=== PATIENT | female | born 1930 | race Caucasian/White ===

== ENCOUNTER 2016-09-23 13:50 | Emergency (ER) | payer OTHER ==
[~2016-09-23] VITALS: Ht 160 cm; Wt 55.6 kg
[2016-09-23 14:01] VITALS: BP 118/69
== END 2016-09-23 14:44 | disposition home or self-care (01) ==
LOC: ED 14:42
DX: S61.211D Laceration without foreign body of left index finger without damage to nail, subsequent encounter (principal); X58.XXXD Exposure to other specified factors, subsequent encounter; Y92.89 Other specified places as the place of occurrence of the external cause; Y99.9 Unspecified external cause status
CPT/HCPCS: 99281

== ENCOUNTER 2017-02-11 13:40 | Emergency (ER) | payer OTHER ==
[~2017-02-11] VITALS: Ht 149.9 cm; Wt 52.9 kg
[2017-02-11] MEDS ORDERED: SODIUM CHLORIDE FLUSH 10ML SYR IVF ONE (15:00)
[2017-02-11] MEDS ORDERED: SODIUM CHLORIDE 0.9% 1,000ML IVBOLUS ONE (15:00)
[2017-02-11] MEDS ORDERED: ONDANSETRON 2MG/ML, 2ML IVPush ONE (15:00)
[2017-02-11 15:26] LABS: HEMOGLOBIN 12.1 g/dL (11.7-16.4); WHITE BLOOD COUNT 4.9 x10^3/uL (3.4-10)
[2017-02-11] MEDS ORDERED: ONDANSETRON 2MG/ML, 2ML ONE (15:32)
[2017-02-11 15:36] LABS: BLOOD UREA NITROGEN 22 mg/dL (7-18)
[2017-02-11 15:40] LABS: ASPARTATE AMINO TRANSFERASE 105 U/L (15-37)
[2017-02-11 17:51] VITALS: BP 123/75
== END 2017-02-11 18:09 | disposition home or self-care (01) ==
LOC: ED 17:59
DX: K52.9 Noninfective gastroenteritis and colitis, unspecified (principal); E86.0 Dehydration; E11.9 Type 2 diabetes mellitus without complications; Z90.49 Acquired absence of other specified parts of digestive tract
CPT/HCPCS: 36415; 70450; 74022; 80053; 83690; 85025; 93005; 96361; 96374; 99285; J2405; J7030

== ENCOUNTER 2017-06-03 17:52 | Inpatient (IN) | payer OTHER ==
[~2017-06-03] VITALS: Ht 152.4 cm; Wt 69.6 kg
[2017-06-03 19:11] LABS: BASOPHILS # (AUTO) 0.02 x10^3/uL (0-0.1); BASOPHILS % (AUTO) 0 % (0-1); EOSINOPHILS % (AUTO) 0 % (1-7); LYMPHOCYTES # (AUTO) 0.96 x10^3/uL (1-3.4); LYMPHOCYTES % (AUTO) 15 % (22-44); MD NO; MEAN CORPUSCULAR HEMOGLOBIN 33.4 pg (27.0-34.8); MEAN CORPUSCULAR HGB CONC 33.6 g/dL (32.4-35.8); MEAN CORPUSCULAR VOLUME 99.5 fL (80-100); MEAN PLATELET VOLUME 9.8 fL (7.4-10.4); MONOCYTES # (AUTO) 0.37 x10^3/uL (0.2-0.8); MONOCYTES % (AUTO) 6 % (2-9); NEUTROPHILS # (AUTO) 5.08 x10^3/uL (1.8-6.8); NEUTROPHILS % (AUTO) 79 % (42-75); PLATELET COUNT 142 x10^3/uL (130-400); RED BLOOD COUNT 3.22 x10^6/uL (3.82-5.3); RED CELL DISTRIBUTION WIDTH 16.3 % (9.6-15.2)
[2017-06-03 19:14] LABS: ALBUMIN 1.9 g/dL (3.4-5.0); ANION GAP 12 mmol/L (5-15); CALCIUM 9.1 mg/dL (8.5-10.1); CHLORIDE 106 mmol/L (98-107)
[2017-06-03 19:18] LABS: ALANINE AMINOTRANSFERASE 90 U/L (12-78); ALKALINE PHOSPHATASE 212 U/L (45-117); BILIRUBIN,TOTAL 4.3 mg/dL (0.2-1.0); CREATININE 2.69 mg/dL (0.55-1.02)
[2017-06-03] MEDS ORDERED: SODIUM CHLORIDE 0.9% 1,000ML IVBOLUS ONE (19:30)
[2017-06-03] MEDS ORDERED: SODIUM CHLORIDE FLUSH 10ML SYR IVF ONE (19:30)
[2017-06-03] MEDS ORDERED: MAGNESIUM SULFATE 1 GM, THIAMINE 100 MG, FOLIC ACID 1 MG, MVI ADULT 10 ML in SODIUM CHL... IV ONE (20:00)
[2017-06-03 22:01] LABS: MICROSCOPIC INDICATED
[2017-06-03 22:04] LABS: CULTURE INDICATED? YES
[2017-06-03 23:16] VITALS: BP 96/58
[2017-06-03] MEDS ORDERED: LOSA100T6 PO (23:44)
[2017-06-03] MEDS ORDERED: blood pressure PO (23:44)
[2017-06-04] MEDS ORDERED: ENALAPRILAT 1.25 MG/ML, 2ML IVPush PRN
[2017-06-04] MEDS ORDERED: LORazepam 1MG TABLET PO PRN ×4
[2017-06-04] MEDS ORDERED: LORazepam 2 MG/ML, 1ML IV PRN ×5
[2017-06-04] MEDS ORDERED: BISACODYL 10 MG SUPP PR PRN
[2017-06-04] MEDS ORDERED: POLYETHYLENE GLYCOL 17 GM PACKET PO PRN
[2017-06-04] MEDS ORDERED: ONDANSETRON ODT 4 MG PO PRN
[2017-06-04] MEDS ORDERED: ONDANSETRON 2MG/ML, 2ML IVPush PRN
[2017-06-04] MEDS ORDERED: LORazepam 0.5MG TABLET PO PRN
[2017-06-04 00:27] LABS: INTERNATIONAL NORMALIZED RATIO 1.38 (0.93-1.1); PROTHROMBIN TIME 14.3 Seconds (9.6-11.5)
[2017-06-04] MEDS: SULFAMETH./TRIMETHOPRIM DS 800MG/160MG TABLET PO SCH ×2 (01:53→08:43)
[2017-06-04 03:50] VITALS: BP 102/56
[2017-06-04] MEDS: SODIUM CHLORIDE 0.9% 1,000 ML IV SCH ×3 (05:38→17:40)
[2017-06-04 06:46] LABS: BASOPHILS # (AUTO) 0.01 x10^3/uL (0-0.1); BASOPHILS % (AUTO) 0 % (0-1); EOSINOPHILS # (AUTO) 0.01 x10^3/uL (0-0.4); EOSINOPHILS % (AUTO) 0 % (1-7); LYMPHOCYTES # (AUTO) 1.55 x10^3/uL (1-3.4); LYMPHOCYTES % (AUTO) 30 % (22-44); MD NO; MEAN CORPUSCULAR HEMOGLOBIN 33.6 pg (27.0-34.8); MEAN CORPUSCULAR VOLUME 98.9 fL (80-100); MEAN PLATELET VOLUME 9.1 fL (7.4-10.4); MONOCYTES # (AUTO) 0.46 x10^3/uL (0.2-0.8); MONOCYTES % (AUTO) 9 % (2-9); NEUTROPHILS # (AUTO) 3.16 x10^3/uL (1.8-6.8); NEUTROPHILS % (AUTO) 61 % (42-75); PLATELET COUNT 113 x10^3/uL (130-400); RED CELL DISTRIBUTION WIDTH 15.9 % (9.6-15.2)
[2017-06-04 06:54] LABS: ALBUMIN 1.6 g/dL (3.4-5.0); ANION GAP 10 mmol/L (5-15); CALCIUM 8.1 mg/dL (8.5-10.1); CHLORIDE 110 mmol/L (98-107)
[2017-06-04 06:58] LABS: ALANINE AMINOTRANSFERASE 73 U/L (12-78); ALKALINE PHOSPHATASE 183 U/L (45-117); BILIRUBIN,TOTAL 3.7 mg/dL (0.2-1.0); CREATININE 2.29 mg/dL (0.55-1.02); TOTAL PROTEIN 5.9 g/dL (6.4-8.2)
[2017-06-04] MEDS ORDERED: MAGNESIUM SULFATE PMX 2GM/50ML 50 ML IV ONE (09:00)
[2017-06-04 09:24] VITALS: BP 106/62
[2017-06-04 15:10] VITALS: BP 103/59
[2017-06-04] MEDS ORDERED: CEFTRIAXONE PMX 1GM/50ML 50 ML IV SCH (17:00)
[2017-06-04 19:41] VITALS: BP 98/60
[2017-06-05 01:08] VITALS: BP 103/61
[2017-06-05] MEDS: SODIUM CHLORIDE 0.9% 1,000 ML IV SCH ×2 (01:58→21:14)
[2017-06-05 06:19] LABS: MEAN CORPUSCULAR HEMOGLOBIN 33.8 pg (27.0-34.8); MEAN CORPUSCULAR VOLUME 99.2 fL (80-100); MEAN PLATELET VOLUME 9.6 fL (7.4-10.4); PLATELET COUNT 92 x10^3/uL (130-400); RED BLOOD COUNT 2.72 x10^6/uL (3.82-5.3); RED CELL DISTRIBUTION WIDTH 16.3 % (9.6-15.2)
[2017-06-05 06:23] LABS: ALBUMIN 1.5 g/dL (3.4-5.0); ANION GAP 11 mmol/L (5-15); CALCIUM 7.9 mg/dL (8.5-10.1); CHLORIDE 112 mmol/L (98-107)
[2017-06-05 06:26] LABS: ALANINE AMINOTRANSFERASE 65 U/L (12-78); ALKALINE PHOSPHATASE 175 U/L (45-117); BILIRUBIN,TOTAL 2.8 mg/dL (0.2-1.0); CREATININE 2.32 mg/dL (0.55-1.02); TOTAL PROTEIN 5.6 g/dL (6.4-8.2)
[2017-06-05 06:41] LABS: MD SCAN
[2017-06-05 06:42] LABS: BASOPHILS % (AUTO) 2 % (0-1); EOSINOPHILS % (AUTO) 0 % (1-7); LYMPHOCYTES # (AUTO) 0.96 x10^3/uL (1-3.4); LYMPHOCYTES % (AUTO) 22 % (22-44); MONOCYTES # (AUTO) 0.33 x10^3/uL (0.2-0.8); MONOCYTES % (AUTO) 8 % (2-9); NEUTROPHILS # (AUTO) 2.97 x10^3/uL (1.8-6.8); NEUTROPHILS % (AUTO) 68 % (42-75)
[2017-06-05 09:02] VITALS: BP 113/64
[2017-06-05] MEDS: POTASSIUM CHLORIDE 20 MEQ, MAGNESIUM SULFATE 1 GM, THIAMINE 100 MG, FOLIC ACID 1 MG, MV... IV SCH (10:44)
[2017-06-05 12:50] VITALS: BP 120/85
[2017-06-05] MEDS ORDERED: CEFTRIAXONE 1,000 MG in DEXTROSE 5% 50 ML IV SCH (17:00)
[2017-06-05 19:02] VITALS: BP 117/72
[2017-06-06 01:38] VITALS: BP 118/69
[2017-06-06 06:19] LABS: ALANINE AMINOTRANSFERASE 70 U/L (12-78); ALBUMIN 1.5 g/dL (3.4-5.0); ANION GAP 7 mmol/L (5-15); CALCIUM 8.5 mg/dL (8.5-10.1); CHLORIDE 115 mmol/L (98-107); CREATININE 2.01 mg/dL (0.55-1.02)
[2017-06-06 06:21] LABS: ALKALINE PHOSPHATASE 171 U/L (45-117); BILIRUBIN,TOTAL 2.3 mg/dL (0.2-1.0); TOTAL PROTEIN 5.8 g/dL (6.4-8.2)
[2017-06-06 06:41] VITALS: BP 110/72
[2017-06-06] MEDS ORDERED: POTASSIUM PHOSPHATE 44 MEQ in SODIUM CHLORIDE 0.9% 500 ML IV ONE (08:00)
[2017-06-06 13:20] VITALS: BP 112/68
[2017-06-06] MEDS: POTASSIUM CHLORIDE 20 MEQ, MAGNESIUM SULFATE 1 GM, THIAMINE 100 MG, FOLIC ACID 1 MG, MV... IV SCH (16:43)
[2017-06-06 20:52] VITALS: BP 99/52
[2017-06-06] MEDS: LACTULOSE 10 GM/15 ML UDC PO SCH (20:53)
[2017-06-07] MEDS: SODIUM CHLORIDE 0.9% 1,000 ML IV SCH (01:54)
[2017-06-07 01:57] VITALS: BP 100/57
[2017-06-07 05:47] LABS: ALANINE AMINOTRANSFERASE 64 U/L (12-78); ALBUMIN 1.5 g/dL (3.4-5.0); ANION GAP 9 mmol/L (5-15); CALCIUM 8.3 mg/dL (8.5-10.1); CHLORIDE 116 mmol/L (98-107); CREATININE 1.77 mg/dL (0.55-1.02)
[2017-06-07 05:48] LABS: ALKALINE PHOSPHATASE 165 U/L (45-117); BILIRUBIN,TOTAL 2.2 mg/dL (0.2-1.0); TOTAL PROTEIN 5.7 g/dL (6.4-8.2)
[2017-06-07 07:30] VITALS: BP 114/62
[2017-06-07] MEDS: LACTULOSE 10 GM/15 ML UDC PO SCH ×2 (09:00→21:00)
[2017-06-07 13:07] VITALS: BP 123/73
[2017-06-07] MEDS ORDERED: LACT10SO5 PO (14:02)
[2017-06-07 19:13] VITALS: BP 116/71
[2017-06-08 00:52] VITALS: BP 147/79
[2017-06-08 07:34] VITALS: BP 112/71
[2017-06-08] MEDS: LACTULOSE 10 GM/15 ML UDC PO SCH ×2 (07:48→21:26)
[2017-06-08 13:36] VITALS: BP 137/74
[2017-06-08 20:05] VITALS: BP 119/75
[2017-06-09 03:00] VITALS: BP 99/55
[2017-06-09 05:46] LABS: ALBUMIN 1.4 g/dL (3.4-5.0); ANION GAP 8 mmol/L (5-15); BASOPHILS # (AUTO) 0.02 x10^3/uL (0-0.1); BASOPHILS % (AUTO) 1 % (0-1); CALCIUM 8.8 mg/dL (8.5-10.1); CHLORIDE 114 mmol/L (98-107); EOSINOPHILS % (AUTO) 0 % (1-7); LYMPHOCYTES # (AUTO) 0.96 x10^3/uL (1-3.4); LYMPHOCYTES % (AUTO) 21 % (22-44); MD NO; MEAN CORPUSCULAR HEMOGLOBIN 33.5 pg (27.0-34.8); MEAN CORPUSCULAR HGB CONC 33.9 g/dL (32.4-35.8); MEAN CORPUSCULAR VOLUME 98.7 fL (80-100); MEAN PLATELET VOLUME 9.2 fL (7.4-10.4); MONOCYTES # (AUTO) 0.38 x10^3/uL (0.2-0.8); MONOCYTES % (AUTO) 8 % (2-9); NEUTROPHILS # (AUTO) 3.18 x10^3/uL (1.8-6.8); NEUTROPHILS % (AUTO) 70 % (42-75); PLATELET COUNT 120 x10^3/uL (130-400); RED BLOOD COUNT 2.76 x10^6/uL (3.82-5.3); RED CELL DISTRIBUTION WIDTH 15.6 % (9.6-15.2)
[2017-06-09 05:50] LABS: ALANINE AMINOTRANSFERASE 56 U/L (12-78); ALKALINE PHOSPHATASE 163 U/L (45-117); BILIRUBIN,TOTAL 2.4 mg/dL (0.2-1.0); TOTAL PROTEIN 5.6 g/dL (6.4-8.2)
[2017-06-09 07:14] VITALS: BP 130/69
[2017-06-09] MEDS: LACTULOSE 10 GM/15 ML UDC PO SCH (08:04)
[2017-06-09 14:50] VITALS: BP 112/69
[2017-06-09 20:06] VITALS: BP 111/73
[2017-06-10 01:50] VITALS: BP 125/63
[2017-06-10 06:59] VITALS: BP 110/70
[2017-06-10] MEDS: LACTULOSE 10 GM/15 ML UDC PO SCH (08:39)
[2017-06-10 13:37] VITALS: BP 112/68
[2017-06-10 19:57] VITALS: BP 103/60
[2017-06-11] MEDS ORDERED: ALUMINUM/MAG/SIMETHICONE 30 ML UDC PO PRN (00:30)
[2017-06-11] MEDS ORDERED: FAMOTIDINE 20 MG TABLET PO ONE (00:30)
[2017-06-11 01:43] VITALS: BP 132/79
[2017-06-11 06:50] VITALS: BP 116/76
[2017-06-11] MEDS: LACTULOSE 10 GM/15 ML UDC PO SCH (09:00)
[2017-06-11] MEDS ORDERED: FUROSEMIDE 20 MG/2 ML IV ONE (12:00)
[2017-06-11 16:32] VITALS: BP 126/76
[2017-06-11 20:22] VITALS: BP 128/73
[2017-06-12 04:00] VITALS: BP 129/71
[2017-06-12 08:28] VITALS: BP 144/94
[2017-06-12] MEDS: LACTULOSE 10 GM/15 ML UDC PO SCH (10:14)
[2017-06-12 11:41] VITALS: BP 119/67
== END 2017-06-12 12:07 | DRG 441 ==
LOC: ED 22:28 → 4NOR 23:12 → EDIP 23:33 → ED 23:33 → 4NOR 06-04 00:58
PROVIDERS: ADMIT Family Medicine; ATTEND Family Medicine
DX: K72.90 Hepatic failure, unspecified without coma (principal); E43 Unspecified severe protein-calorie malnutrition; K76.7 Hepatorenal syndrome; N17.9 Acute kidney failure, unspecified; E11.9 Type 2 diabetes mellitus without complications; E86.0 Dehydration; K70.11 Alcoholic hepatitis with ascites; N39.0 Urinary tract infection, site not specified; W18.30XA Fall on same level, unspecified, initial encounter; Z68.30 Body mass index [BMI] 30.0-30.9, adult; D25.9 Leiomyoma of uterus, unspecified; F10.10 Alcohol abuse, uncomplicated; F43.20 Adjustment disorder, unspecified; K59.00 Constipation, unspecified; K70.31 Alcoholic cirrhosis of liver with ascites; K76.0 Fatty (change of) liver, not elsewhere classified; Z90.49 Acquired absence of other specified parts of digestive tract; Z87.891 Personal history of nicotine dependence
CPT/HCPCS: 36415; 70450; 71046; 71250; 74176; 76700; 80053; 80307; 81001; 82140; 83690; 83735; 84100; 85025; 85610; 86704; 86706; 86708; 86709; 86803; 87086; 87340; 93005; 96365; 96366; J0696; J3411; J3475; J3480; J1940; J7030; J7040

== ENCOUNTER 2020-10-19 08:13 | Day surgery (SDC) | payer MEDICARE, OTHER ==
[~2020-10-19] VITALS: Ht 152.4 cm; Wt 52.3 kg
[~2020-10-19 08:13] MED LIST: BUPIVACAINE/PF 0.5% ONE; EPINEPHRINE 1 MG/ML, 1ML ONE; FURO40TA6 PO; LACT10SO24 PO; LEVO50TA5 PO; LOSA100T14 PO; RIFA550T4 PO; blood pressure PO
[2020-10-19] MEDS ORDERED: LACTATED RINGERS 1,000 ML IV SCH (09:00)
[2020-10-19] MEDS ORDERED: PLEASE ENTER HEIGHT AND WEIGHT MC SCH (09:00)
[2020-10-19] MEDS ORDERED: CHLORHEXIDINE 15 ML UDC PO ONE (09:00)
[2020-10-19 09:08] VITALS: BP 186/74
[2020-10-19] MEDS ORDERED: LOSA100T14 PO (09:17)
[2020-10-19] MEDS ORDERED: METF500T17 PO (09:17)
[2020-10-19] MEDS ORDERED: MECO10005 PO (09:17)
[2020-10-19] MEDS ORDERED: DULO20CA45 PO (09:17)
[2020-10-19] MEDS ORDERED: ASPI-963 PO (09:17)
[2020-10-19] MEDS ORDERED: CHOL10003 PO (09:17)
[2020-10-19] MEDS ORDERED: IBAN150T15 PO (09:17)
[2020-10-19] MEDS ORDERED: FENTANYL PF 100 MCG/2ML ONE (10:52)
[2020-10-19] MEDS ORDERED: PROPOFOL 10 MG/ML, 20ML ONE (10:52)
[2020-10-19] MEDS ORDERED: LIDOCAINE-MPF 2% ,5ML ONE (10:52)
[2020-10-19 10:54] LABS: ALANINE AMINOTRANSFERASE 23 U/L (12-78); ALBUMIN 3.6 g/dL (3.4-5.0); ANION GAP 5 mmol/L (5-15); CALCIUM 10.3 mg/dL (8.5-10.1); CHLORIDE 111 mmol/L (98-107); CREATININE 1.01 mg/dL (0.55-1.02)
[2020-10-19 10:56] LABS: ALKALINE PHOSPHATASE 49 U/L (45-117); BILIRUBIN,TOTAL 0.5 mg/dL (0.2-1.0); TOTAL PROTEIN 6.7 g/dL (6.4-8.2)
[2020-10-19] MEDS ORDERED: BUPIVACAINE/PF-EPI 0.5% 1:200K INFIL ONE (11:15)
[2020-10-19] MEDS ORDERED: ONDANSETRON 2MG/ML, 2ML IVPush PRN (11:30)
[2020-10-19] MEDS ORDERED: HYDROmorphone 1 MG/ML, 1ML INJ IVPush PRN (11:30)
[2020-10-19] MEDS ORDERED: FENTANYL PF 100 MCG/2ML IV PRN (11:30)
[2020-10-19] MEDS ORDERED: HYDROcodone/APAP 7.5-325MG/15ML UDC PO PRN (11:30)
[2020-10-19] MEDS ORDERED: PROMETHAZINE 25 MG/ML, 1ML IVPush PRN (11:30)
[2020-10-19] MEDS ORDERED: MEPERIDINE/PF 25MG/0.5ML IVPush PRN (11:30)
[2020-10-19] MEDS ORDERED: OXYcodone 5 MG/5 ML ORAL.SOL UDC PO PRN (11:30)
[2020-10-19] MEDS ORDERED: CEFAZOLIN 1,000 MG ONE (17:02)
[2020-10-19] MEDS ORDERED: ONDANSETRON 2MG/ML, 2ML ONE (17:02)
[2020-10-19] MEDS ORDERED: DEXAMETHASONE 4 MG/ML, 1ML ONE (17:02)
== END 2020-10-19 13:15 | disposition home or self-care (01) ==
LOC: OUT 08:13
PROVIDERS: ATTEND Surgery
DX: N63.21 Unspecified lump in the left breast, upper outer quadrant (principal); C50.412 Malignant neoplasm of upper-outer quadrant of left female breast; E11.9 Type 2 diabetes mellitus without complications; I10 Essential (primary) hypertension; E78.5 Hyperlipidemia, unspecified; G47.33 Obstructive sleep apnea (adult) (pediatric); Z20.822 Contact with and (suspected) exposure to COVID-19; Z79.899 Other long term (current) drug therapy; Z90.49 Acquired absence of other specified parts of digestive tract; Z87.891 Personal history of nicotine dependence
CPT/HCPCS: 19301; 80053; 82962; 88307; 93005; C1729; J0171; J0690; J1100; J2405; J2704; J3010; J7120; U0003; U0005

== ENCOUNTER → 2020-12-08 | Outpatient (CLI) | payer MEDICARE, OTHER ==
[~2020-12-08] MED LIST changes: +ASPI-963 PO; +ATOR10TA9 PO; -BUPIVACAINE/PF 0.5% ONE; +CHOL10003 PO; +CYAN100072 PO; +DULO20CA45 PO; -EPINEPHRINE 1 MG/ML, 1ML ONE; +IBAN150T15 PO; +MECO10005 PO; +METF500T17 PO
[2020-12-08 12:27] LABS: ALBUMIN 3.9 g/dL (3.4-5.0); CALCIUM 10.2 mg/dL (8.5-10.1)
[2020-12-08 12:31] LABS: ALANINE AMINOTRANSFERASE 25 U/L (12-78); ALKALINE PHOSPHATASE 47 U/L (45-117); BILIRUBIN,TOTAL 0.5 mg/dL (0.2-1.0); CREATININE 1.09 mg/dL (0.55-1.02); TOTAL PROTEIN 7.5 g/dL (6.4-8.2)
[2020-12-08 12:54] LABS: ANION GAP 5 mmol/L (5-15); CHLORIDE 110 mmol/L (98-107)
== END | disposition home or self-care (01) ==
LOC: STAR 11:16
PROVIDERS: ATTEND Surgery
DX: Z01.812 Encounter for preprocedural laboratory examination (principal); Z20.822 Contact with and (suspected) exposure to COVID-19; C50.412 Malignant neoplasm of upper-outer quadrant of left female breast; I44.0 Atrioventricular block, first degree; I21.9 Acute myocardial infarction, unspecified
CPT/HCPCS: 36415; 80053; 93005; U0003; U0005

== ENCOUNTER 2020-12-14 08:34 | Observation (INO) | payer MEDICARE, OTHER ==
[~2020-12-14] VITALS: Ht 152.4 cm; Wt 47.2 kg
[2020-12-14 09:07] VITALS: BP 167/94
[2020-12-14] MEDS ORDERED: CHLORHEXIDINE 15 ML UDC PO ONE (09:30)
[2020-12-14] MEDS ORDERED: LACTATED RINGERS 1,000 ML IV SCH (09:30)
[2020-12-14] MEDS ORDERED: PROPOFOL 10 MG/ML, 20ML ONE (10:52)
[2020-12-14] MEDS ORDERED: hydrALAzine 20 MG/ML, 1ML ONE (10:52)
[2020-12-14] MEDS ORDERED: ONDANSETRON 2MG/ML, 2ML ONE (10:52)
[2020-12-14] MEDS ORDERED: DEXAMETHASONE 4 MG/ML, 1ML ONE (10:52)
[2020-12-14] MEDS ORDERED: CEFAZOLIN 1,000 MG ONE (10:52)
[2020-12-14] MEDS ORDERED: SUCCINYLCHOLINE 20 MG/ML, 10ML ONE (10:52)
[2020-12-14] MEDS ORDERED: OXYcodone 5 MG/5 ML ORAL.SOL UDC PO PRN (11:00)
[2020-12-14] MEDS ORDERED: ACETAMINOPHEN 325 MG TABLET PO PRN (11:00)
[2020-12-14] MEDS ORDERED: ONDANSETRON 2MG/ML, 2ML IVPush PRN ×2 (11:00→16:30)
[2020-12-14] MEDS ORDERED: hydrALAzine 20 MG/ML, 1ML IV PRN (11:00)
[2020-12-14] MEDS ORDERED: MEPERIDINE/PF 25MG/0.5ML IVPush PRN (11:00)
[2020-12-14] MEDS ORDERED: METOPROLOL 1 MG/ML, 5ML IV PRN (11:00)
[2020-12-14] MEDS ORDERED: LABETALOL 5MG/ML, 20ML IV PRN (11:00)
[2020-12-14] MEDS ORDERED: ACETAMINOPHEN 650 MG/20.3 ML UDC ONE (12:04)
[2020-12-14] MEDS ORDERED: OXYcodone 5 MG/5 ML ORAL.SOL UDC ONE ×2 (12:04→12:22)
[2020-12-14] MEDS ORDERED: FENTANYL PF 100 MCG/2ML ONE ×2 (12:04→13:03)
[2020-12-14] MEDS: FENTANYL PF 100 MCG/2ML IV PRN ×4 (12:09→13:05)
[2020-12-14] MEDS ORDERED: HYDROmorphone 2 MG/ML, 1ML ONE (12:27)
[2020-12-14] MEDS: HYDROmorphone 1 MG/ML, 1ML INJ IVPush PRN ×3 (12:35→12:50)
[2020-12-14] MEDS ORDERED: MORPHINE SULFATE 4 MG/ML, 1ML IVPush PRN (16:30)
[2020-12-14] MEDS: LACTATED RINGERS 1,000 ML IV SCH (16:30)
[2020-12-14] MEDS ORDERED: ENOXAPARIN 40 MG/0.4 ML SQ SCH (18:00)
[2020-12-14 18:46] VITALS: BP 130/70
[2020-12-14] MEDS: HYDROcodone/APAP 5/325 TABLET PO PRN (22:00)
[2020-12-15 00:20] VITALS: BP 114/61
[2020-12-15] MEDS: LACTATED RINGERS 1,000 ML IV SCH (02:02)
[2020-12-15] MEDS: HYDROcodone/APAP 5/325 TABLET PO PRN ×2 (02:02→06:05)
[2020-12-15 04:23] VITALS: BP 113/63
[2020-12-15] MEDS ORDERED: HYDR-2214 PO ×3 (05:59→06:07)
[2020-12-15 07:51] VITALS: BP 120/66
== END 2020-12-15 12:30 | disposition home or self-care, planned readmission (81) ==
LOC: OUT 08:34 → 3WST 17:02 → INTOOBSV 17:02
PROVIDERS: ADMIT Surgery; ATTEND Surgery
DX: C50.912 Malignant neoplasm of unspecified site of left female breast (principal); I10 Essential (primary) hypertension; E11.9 Type 2 diabetes mellitus without complications; E78.5 Hyperlipidemia, unspecified; Z79.899 Other long term (current) drug therapy
CPT/HCPCS: 19303; 38500; 38792; 82962; 88307; 88333; 96360; 96361; 96372; A9541; G0378; J0330; J0360; J0690; J1100; J1170; J1650; J2405; J2704; J3010; J7120